=== PATIENT | female | born 1975 | race Caucasian/White ===

== ENCOUNTER 2016-09-30 09:03 | Emergency (ER) | payer OTHER ==
[2016-09-30 09:21] VITALS: BP 109/80; PULSE 80; RESP 16; TEMP 97.5; O2SAT 97
--- NOTE | 2016-09-30 09:47 | UCPHY ---
H & P Time Seen by Provider: 09/30/16 09:34 Patient Type: New HPI/ROS: This patient presents with a chief complaint of right knee injury which occurred yesterday evening when she fell down some steps nares. She describes a valgus stress type of mechanism. She localizes her pain to the medial aspect of the joint. She denies other injury. She has noticed that weight-bearing seems unstable and also painful. But when not bearing weight flexion and extension are not particularly painful. She denies any motor sensory dysfunction. She denies previous knee injury. Smoking Status: Never smoked Physical Exam: This is a well-developed well-nourished female who is in no acute distress except when bearing weight. She is alert, lucid and entirely appropriate. Examination of the right knee reveals no joint effusion and minimal swelling medially. Tenderness is maximal over the medial femoral condyle there is also tenderness along the joint line and over the medial tibial condyle. Skin is intact and normal. Stressing of the medial collateral ligament does cause significant pain but I can detect no laxity. Because of guarding this test may be unreliable. Laterally there is no tenderness and collateral ligament is intact. There is no evidence of cruciat injury. CMS is intact distally. Constitutional: Initial Vital Signs Temperature (C) 36.4 C 09/30/16 09:19 Heart Rate 80 09/30/16 09:19 Respiratory Rate 16 09/30/16 09:19 Blood Pressure 109/80 09/30/16 09:19 O2 Sat (%) 97 09/30/16 09:19 O2 Delivery Mode Room Air Allergies/Adverse Reactions: No Known Allergies Allergy (Verified 09/30/16 09:21) Home Medications: Medication Instructions Recorded Nuvaring 09/30/16 Medical Decision Making ED Course/Re-evaluation: A knee immobilizer was applied Differential Diagnosis: My suspicion for fracture is quite low consequently an x-ray was not done and the patient agreed with this plan. There is no evidence of cruciate injury or lateral collateral ligament injury. I do not believe that this injury is surgical given that my impression currently is that this is a 1st degree strain. Departure - Departure Disposition: Home, Routine, Self-Care Clinical Impression: Medial collateral ligament sprain of knee Qualifiers: Encounter type: initial encounter Laterality: right Qualifier Code: (S83.411A) Sprain of medial collateral ligament of right knee, initial encounter Condition: Good Instructions: Knee Sprain (ED), Knee Immobilizer (ED) Additional Instructions: If the knee is not improved in the next 5-7 days you should see the orthopedist whose name is provided to you in these pages. If the knee has not completely healed and 3 or 4 weeks you should be re-evaluated. If the knee continues to feel unstable after improvement you should be re-evaluated. Wear the knee immobilizer for at least 1 week and thereafter for comfort. Avoid re-injury Apply ice to the area of injury for 20 minutes every 2 hours for 3 days following your injury. After 3 days (72 hours) it is safe to apply heat frequently throughout the day and I would recommend you're doing so. However if ice feels better it is okay to do this. Elevate the area of the injury as much as possible for the next 2 or 3 days or longer if you have a serious injury. If you have been told that it is safe to use the injured extremity do so in a limited fashion for the first 2-3 days. Afterwards left pain be your guide. Adult Pain & Fever Control: We recommend Acetaminophen (Tylenol) and Ibuprofen (Motrin, Advil) for pain and fever control. When fever is high or pain severe, both drugs can be used at the same time, but at different intervals. Please note the time differences. Your dose is: Acetaminophen [650]mg every 4 to 6 hours ibuprofen [600]mg every [6] hours with food OR naproxen Sodium (Aleve) [440]mg every 12 hours. Note: do not take Acetaminophen with Hydrocodone (Vicodin, Lortab) or Oxycodone (Percocet). These medications also contain Acetaminophen. No more than 3000 mg of Acetaminophen should be taken in 24 hours (for an adult) . The maximal dose of ibuprofen that it is safe in a 24-hour period is 2400 mg. You may take 400 mg every 4 hours, 600 mg every 6 hours or 800 mg every 8 hours safely. - PQRS PQRS Measurement: Not applicable
== END 2016-09-30 09:58 | disposition home or self-care (01) ==
LOC: CED 09:03
DX: S83.411A Sprain of medial collateral ligament of right knee, initial encounter (principal); W10.8XXA Fall (on) (from) other stairs and steps, initial encounter
CPT/HCPCS: 99203-PO; G0463-PO

== ENCOUNTER 2018-06-08 17:57 | Emergency (ER) | payer OTHER ==
--- NOTE | 2018-06-08 18:41 | EDPHY ---
H & P Time Seen by Provider: 06/08/18 18:31 HPI/ROS: HPI Painful bulge right thigh. 42-year-old female by private vehicle. She reports that she had a long day of work on . She was sitting in her chair for approximately 20 hr. She reports that about 3 hr after this she noticed a bulging and swelling on the medial anterior and proximal aspect of her right thigh. She reports that this has persisted and worsened somewhat and she has noticed a slight asymmetric swelling in her right lower extremity verses her left lower extremity. She has no prior history of thromboembolic disease. She is not on any prescription medication. Denies any loss of sensation or weakness in her right lower extremity. No joint pain in her right hip or right knee. No other complaint. There is no history of trauma. ROS: Constitutional: No fever, no chills. No weakness. Respiratory: No cough. No shortness of breath. Cardiac: No chest pain, no palpitations. Gastrointestinal: No abdominal pain, no vomiting, no diarrhea. Musculoskeletal: As above. Skin: No rashes. Neurological: No headache. No focal weakness or altered sensation. Past medical history: Herniated disc L5-S1. She is on control therapy. Social history: Nonsmoker. No alcohol. Here by herself. Physical Exam: General Appearance: Alert, no distress. This patient is responding to questions appropriately and in full sentences. This patient appears well- hydrated and well-nourished. Right lower extremity exam: She does have a firm swelling which is mildly tender on palpation, it feels deep in the soft tissues of the proximal medial anterior thigh just below the inguinal line. It is not pulsatile. Muscle compartments are soft. No associated soft tissue changes. No erythema, warmth or edema. There is perhaps a subtle asymmetric swelling of the right lower extremity noticed in the right thigh when compared to the left lower extremity. The right lower extremity is neurovascularly intact. All joints in the right lower extremity range without any pain or impingement. Respiratory: There are no retractions, lungs are clear to auscultation with good air movement bilaterally. Cardiovascular: Regular rate and rhythm. No murmur. Neurological: Motor sensory function is grossly intact. Cranial nerves are normal. Gait is normal. Skin: Warm and dry, no rashes. Musculoskeletal: Neck is supple and nontender. Extremities are symmetrical. All joints range without pain or impingement. Psychiatric: No agitation. No depression. Database: EKG: Imaging: Right lower extremity ultrasound: No evidence of DVT. No pulsatile hematoma. No fluid collection. There appears to be localized muscle inflammation proximal medial right thigh suggestive of a muscle injury or tear. Results were discussed with staff radiologist Dr. Ambrose Fuller. Procedures: Emergency department course: Triage vital signs reviewed and are normal. Patient sent for a right lower extremity venous Doppler ultrasound. 7:20 p.m., patient re-evaluated. Results of ultrasound and probable diagnosis discussed with her. Right medial thigh was wrapped in an Yifan wrap for support. Plan will be to have her follow up with Orthopedics, Dr. Fuentes, for re- evaluation and likely MRI for further clarification and diagnosis. The patient is in agreement with this plan. She understands for follow-up. Return to emergency department precautions reviewed with her. All of her questions were answered. She was discharged in good condition. Differential Diagnosis: The differential diagnosis on this patient includes but is not limited to DVT, muscle strain, muscle tear. Abscess, aneurysm, myositis ossificans, compartment syndrome unlikely. This represents a partial list of diagnoses considered. These considerations are based on history, physical exam, past history, reassessment and diagnostic testing. Smoking Status: Never smoked Constitutional: Initial Vital Signs Temperature (C) 36.9 C 06/08/18 18:04 Heart Rate 68 06/08/18 18:04 Respiratory Rate 14 06/08/18 18:04 Blood Pressure 126/83 H 06/08/18 18:04 O2 Sat (%) 97 06/08/18 18:04 O2 Delivery Mode Room Air Allergies/Adverse Reactions: No Known Allergies Allergy (Verified 06/08/18 18:03) Home Medications: Medication Instructions Recorded Nuvaring 09/30/16 Medical Decision Making - Diagnostics Imaging Results: Imaging Impressions Extremity Venous Study 06/08/18 18:32 Impression: 1. No deep venous thrombosis right leg. 2. Right proximal medial thigh muscle focal enlargement which may represent subacute tear versus neoplasm. Recommend follow-up MRI. Findings and recommendations discussed with Emergency Department physician, Shannan Meyer MD at 19:09 hour, 06/08/2018. Final report concurs with initial preliminary interpretation. Departure - Departure Disposition: Home, Routine, Self-Care Clinical Impression: Right groin swelling Condition: Good Instructions: Muscle Strain (ED) Additional Instructions: Read and follow provided instructions. Follow-up with Orthopedics, Dr. Fuentes, or 1 of his partners within the next 2-3 days for re-evaluation. They can obtain an MRI without contrast of your right thigh for further evaluation and clarification of diagnosis. Ibuprofen dosin mg every 6 hours with meals for the next 3 days only. Take only as needed for pain. Avoid any activity which exacerbates her pain. Return to the emergency department for worsening pain, swelling, discoloration, fever, altered sensation or weakness in your right leg or other serious concerns. Referrals: Joanna Fuentes MD [Medical Doctor] - As per Instructions
[2018-06-08 19:54] VITALS: BP 122/74
== END 2018-06-08 19:40 | disposition home or self-care (01) ==
LOC: CED 17:57
DX: R22.41 Localized swelling, mass and lump, right lower limb (principal)
CPT/HCPCS: 93971-PO